=== PATIENT | female | born 2000 | race Caucasian/White ===

== ENCOUNTER 2018-09-17 00:17 | Emergency (ER) | payer OTHER ==
[2018-09-17 00:26] VITALS: BP 147/87; PULSE 73; TEMP 97.8; BMI 22.3
[2018-09-17] MEDS ORDERED: LIDOCAINE HCL 2% (20ML MULTI-DOSE VIAL) NR ONE ×2 (00:38→02:30)
--- NOTE | 2018-09-17 00:41 | PDOC ---
Attending Attestation - Resident Resident Name: HeatherEverton - ED Attending Attestation I have performed the following: I have examined & evaluated the patient, The case was reviewed & discussed with the resident, I agree w/resident's findings & plan, Exceptions are as noted - HPI HPI: 09/17/18 00:40 pt presents to the ER with a fox in left ear 09/17/18 04:13 - Physicial Exam PE: 09/17/18 00:41 General: Well appearing HEENT: There is indeed a fox in the left external auditory canal Respiratory/Chest: Lungs Clear Cardiovascular: Regular Rhythm, Regular Rate Gastrointestinal/Abdominal: Soft. No Guarding, Rebound, Tenderness Musculoskeletal: No CVA Tenderness Integumentary: Normal Color, Dry, Warm Neurologic: Fully Oriented, Alert, Normal Mood/Affect, Normal Response, - Medical Decision Making 09/17/18 00:41 Fox partially removed by Dr Romero (please see his note for additional details) Pt unable to tolerate any further attempts to remove fox Pt given motrin for pain, pt placed on topical abx Pt referred to ENT for complete removal of fox *DC/Admit/Observation/Transfer Diagnosis at time of Disposition: Foreign body in ear Qualifiers: Encounter type: initial encounter Laterality: left Qualified Code(s): T16.2XXA - Foreign body in left ear, initial encounter - Discharge Dispostion Disposition: HOME Condition at time of disposition: Stable Decision to Admit order: No - Referrals Referrals: Az Ramirez MD [Staff Physician] - - Patient Instructions Printed Discharge Instructions: DI for Removal of Foreign Body From Ear Additional Instructions: Please return to the ER if you experience concerning or worsening symptoms including worsening difficulty breathing, weakness, or chest pain. We were unable to remove the foreign body from your ear unfortunately. Please call to schedule a follow up appointment withour ENT specialist Dr. Ramirez first thing tomorrow morning to discuss your ER visit and further management of your symptoms. - Post Discharge Activity
[2018-09-17] MEDS ORDERED: LIDOCAINE VISCOUS 2% ORAL/TOP 20 ML UNIT-DOSE CUP ONE (01:45)
--- NOTE | 2018-09-17 02:25 | PDOC ---
History of Present Illness - General Chief Complaint: Foreign Body (FB) Stated Complaint: FOREIGN BODY,LT EAR Time Seen by Provider: 09/17/18 00:36 - History of Present Illness Initial Comments: 09/17/18 03:02 The patient is a 18 year old female with no significant PMH who presents for evaluation of foreign body to the left ear. The patient reports that she thinks a cockroach crawled into her left ear. She attempted to remove the bug with a Q-tip but was unable prompting her presentation to the ED for further evaluation. She otherwise denies fevers, chills, SOB, chest pain, nausea, vomiting, abdominal pain, or changes with urination or bowel movements. Past History - Past Medical History Allergies/Adverse Reactions: Allergies Allergy/AdvReac Type Severity Reaction Status Date / Time No Known Allergies Allergy Verified 01/28/12 17:39 - Immunization History Td Vaccination: Yes Immunization Up to Date: Yes - Suicide/Smoking/Psychosocial Hx Smoking Status: No Smoking History: Never smoked Have you smoked in the past 12 months: No Number of Cigarettes Smoked Daily: 0 Hx Alcohol Use: No Drug/Substance Use Hx: No Review of Systems - Review of Systems Comments:: 09/17/18 03:04 Constitutional: No fevers, chills, fatigue, malaise HEENT: Foreign Body in left ear. No Rhinorrhea, nasal congestion, visual changes Cardiovascular: No chest pain, syncope, palpitations, lightheadedness Respiratory: No Cough, SOB, Hemoptysis, Gastrointestinal: No Abdominal pain, Nausea, Vomiting, Constipation, Diarrhea, Melena Genitourinary: No Dysuria, Frequency, Urgency, Hesitancy, Hematuria, Flank pain Musculoskeletal: No Myalgia, arthralgia Skin: No rashes, itching, bruising, pallor Neurologic: No Headache, Dizziness, Numbness, Weakness, or Tingling Psychiatric: No Hallucinations. No SI or HI *Physical Exam - Vital Signs Last Vital Signs Temp Pulse Resp BP Pulse Ox 97.8 F 73 20 147/87 100 09/17/18 00:24 09/17/18 00:24 09/17/18 00:24 09/17/18 00:24 09/17/18 00:24 - Physical Exam Comments: 09/17/18 03:04 General Appearance: Nourished. No Apparent Distress HEENT: Visible cockroach deep in the left ear canal with excoriations to the ear canal. No Pharyngeal Erythema, Tonsillar Exudate, Tonsillar Erythema Neck: No Cervical Lymphadenopathy Respiratory/Chest: Lungs Clear, Normal Breath Sounds. No Crackles, Rales, Rhonchi, Wheezing Cardiovascular: Regular Rhythm, Regular Rate. No Murmur, Gallops, Rubs Gastrointestinal/Abdominal: Normal Bowel Sounds, Soft. No Guarding, Rebound, Tenderness Musculoskeletal: No CVA Tenderness Extremity: Normal Capillary Refill Integumentary: Normal Color, Dry, Warm Neurologic: Fully Oriented, Alert, Normal Mood/Affect, Normal Response, Medical Decision Making - Medical Decision Making 09/17/18 03:05 The patient is a 18 year old female with no significant PMH who presents for evaluation of foreign body to the left ear. We utilized normal 2% liquid lidocaine and viscous lidocaine to kill the cockroach. We made multiple attempts to remove the foreign body using suction, saline flushes, and with forceps and were only able to remove the posterior 1/3 of the cockroach. The rest of the foreign body is impacted to deep into the ear canal and we were unable to remove the rest of the cockroach and the patient is unable to tolerate further attempts. We will discharge the patient home on ofloxacin with ENT follow up in the morning for removal of the foreign body. We discussed the plan and return precautions with the patient who voiced understanding and is agreeable with the plan. *DC/Admit/Observation/Transfer Diagnosis at time of Disposition: Foreign body in ear Qualifiers: Encounter type: initial encounter Laterality: left Qualified Code(s): T16.2XXA - Foreign body in left ear, initial encounter - Discharge Dispostion Disposition: HOME Condition at time of disposition: Stable - Referrals Referrals: Az Ramirez MD [Staff Physician] - - Patient Instructions Printed Discharge Instructions: DI for Removal of Foreign Body From Ear Additional Instructions: Please return to the ER if you experience concerning or worsening symptoms including worsening difficulty breathing, weakness, or chest pain. We were unable to remove the foreign body from your ear unfortunately. Please call to schedule a follow up appointment withour ENT specialist Dr. Ramirez first thing tomorrow morning to discuss your ER visit and further management of your symptoms. - Post Discharge Activity
[2018-09-17] MEDS ORDERED: OFLOXACIN 0.3% OTIC SOLUTION 5 ML BOTTLE AS ONE (02:28)
[2018-09-17] MEDS ORDERED: LIDOCAINE VISCOUS 2% ORAL/TOP 100 ML BOTTLE MM ONE (02:30)
[2018-09-17] MEDS ORDERED: IBUPROFEN 600 MG TABLET (FP) PO ONE ×2 (02:36→03:34)
== END 2018-09-17 03:46 | disposition home or self-care (01) ==
LOC: JER 00:17
PROC: 09C47ZZ Extirpation of Matter from Left External Auditory Canal, Via Natural or Artificial Opening (ICD-10-PCS; principal; 2018-09-17)
DX: T16.2XXA Foreign body in left ear, initial encounter (principal)
CPT/HCPCS: 99281-25